=== PATIENT | male | born 1950 | race Caucasian/White ===

== ENCOUNTER 2024-06-06 11:00 | Emergency (ER) | payer OTHER ==
[2024-06-06 12:15] LABS: APPEARANCE,URINE CLEAR (CLEAR); BILIRUBIN,URINE NEGATIVE (NEGATIVE); COLOR,URINE YELLOW; GLUCOSE,URINE NEGATIVE (NEGATIVE); KETONES,URINE NEGATIVE (NEGATIVE); LEUKOCYTE ESTERASE,URINE SMALL (NEGATIVE); NITRITE,URINE NEGATIVE (NEGATIVE); OCCULT BLOOD,URINE NEGATIVE (NEGATIVE); PROTEIN,URINE NEGATIVE (NEGATIVE); UROBILINOGEN,URINE 0.2 E.U./dL (0.2-1.0)
[2024-06-06 12:18] LABS: WBC CLUMPS,URINE FEW /HPF
[2024-06-06 12:24] LABS: UROTHELIAL CELLS,URINE RARE /HPF
[2024-06-06 12:25] LABS: RBC,URINE NOT SEEN /HPF; SQUAMOUS EPITHELIAL CELLS,UR OCCASIONAL /HPF
== END 2024-06-06 12:35 | disposition home or self-care (01) ==
LOC: LB.ED 11:00
DX: R35.0 Frequency of micturition (principal); Z79.82 Long term (current) use of aspirin
CPT/HCPCS: 81001; 99283